=== PATIENT | male | born 1970 | race Caucasian/White ===

== ENCOUNTER 2021-04-29 13:14 | Emergency (ER) | payer OTHER, SELFPAY ==
--- NOTE | ~2021-04-29 | XR_ITS ---
EXAMINATION: XR CHEST CLINICAL INFORMATION: Cough COMPARISON: None TECHNIQUE: Frontal view of the chest was obtained. FINDINGS: Patchy airspace opacities within the right mid to lower lung and left lower lung. No pleural effusion or pneumothorax. Heart size is normal. No acute osseous abnormality. XR/XR chest 1V IMPRESSION: Patchy bilateral airspace opacities.
[2021-04-29 13:39] VITALS: BP 137/86; PULSE 89; RESP 16; TEMP 36.9; O2SAT 93; BMI 39.5
--- NOTE | 2021-04-29 13:51 | ED_ITS ---
HPI - General Adult General Chief complaint: General Medical Stated complaint: covid+ Time Seen by Provider: 04/29/21 13:30 Source: patient Mode of arrival: ambulatory Limitations: no limitations History of Present Illness HPI narrative: THIS IS PLEASANT 50 YEARS OLD PATIENT THAT WAS DIAGNOSED WITH COVID 1 WEEK AGO WITH ABOUT A WEEK AGO, PRESENTED TO THE EMERGENCY DEPARTMENT WITH CHIEF COMPLAINT NO NAUSEA OR VOMITING SINCE THIS MORNING. HE DENIES ANY FEVER, HE HAS BEEN MONITOR HIS OXYGEN SATURATION AND HAS BEEN OKAY Onset (ago): week(s) (1) Radiation: non-radiation Severity: mild Pain Consistency: constant Related Data Previous Rx's Medication Instructions Recorded azithromycin 250 mg tablet See Rx Instructions .ROUTE 04/29/21 (Zithromax Z-Jairo) .COMPLEX #6 tab Allergies Allergy/AdvReac Type Severity Reaction Status Date / Time isosorbide Allergy Migraine Verified 04/29/21 13:39 mononitrates Allergy Migraine Uncoded 04/29/21 13:39 Review of Systems Review of Systems: Yes all other systems are reviewed and are negative Constitutional: Constitutional: Reports no additional constitutional complaints Cardiovascular: Cardiovascular: Reports no additional cardiovascular complaints Respiratory: Respiratory: Reports cough Gastrointestinal: Gastrointestinal: Reports nausea and Reports vomiting PMFSH Past Medical History Medical History Myocardial infarct, old Social History Social History Advance Directives: No Advance Directives Information Provided: No Physical Exam Vital Signs: Vital Signs: Last Vital Signs Temp 98.2 F 04/29/21 15:03 Pulse 80 04/29/21 15:03 Resp 16 04/29/21 15:03 BP 127/63 04/29/21 15:03 Pulse Ox 95 04/29/21 15:03 Body Mass Index 39.5 Const: General: cooperative and comfortable Nutritional Appearance: well nourished Orientation/consciousness: oriented to person, oriented to place, oriented to time and patient oriented x3 HENMT: Head: Yes normal to inspection Face and sinus: Yes normal facial exam Neck: Neck: Yes normal visual inspection, Yes full ROM, Yes no lymphadenopathy and Yes no meningeal signs Chest: Chest palpation & inspection: normal inspection of the chest Resp: Effort & Inspection: normal respiratory effort Auscultation: clear to auscultation bilaterally Cardio: Jugular venous distension: no JVD Rhythm: regular rhythm GI: Inspection: Yes normal to inspection Palpation (GI): Soft to palpation, not firm, nontender and no guarding Skin: General skin exam: no rashes or lesions noted, elasticity normal and turgor normal Lesions: no lesions Rashes: no rashes Neuro: General: oriented to person, oriented to place, oriented to time, patient oriented x3 and no meningeal signs Course Reevaluation(s) Reevaluation #1: at this time he is feeling much better ,his 02 Sat is 95%,he does not desat during ambulation. His Covid 19 severity score is 0 Sat more than 92%and RR 16. He is comfortable to go home,he has an 02 oxymeter that has been using at home. I will prescibe also empirically an antibiotix azythromicin in case he has a bacterial superinfection Medical Decision Making Lab Data Result diagrams: 04/29/21 13:55 04/29/21 13:55 Labs: Lab Results 04/29/21 04/29/21 Range/Units 13:55 13:55 WBC 5.7 (4.8-10.8) X10*3/uL RBC 5.43 (4.60-5.80) X10*6/uL Hgb 15.9 (14.0-18.0) g/dl Hct 48.0 (42-52) % MCV 88.4 (80-98) fL MCH 29.3 (27.0-33.0) pg MCHC 33.1 (31.0-36.0) g/dl RDW 12.5 (11.0-16.0) % Plt Count 195 (160-400) X10*3/uL MPV 9.1 L (9.4-12.4) fL Immature Gran % (Auto) 0.7 H (0.0-0.4) % Neut % (Auto) 75.4 H (45-73) % Lymph % (Auto) 15.0 L (20-40) % [place] % (Auto) 8.5 (2-11) % Eos % (Auto) 0.2 (0-4) % Baso % (Auto) 0.2 (0-2) % Lymph # (Auto) 0.9 L (1.2-4.9) X10*3/uL [place] # (Auto) 0.5 (0.1-1.2) X10*3/uL Eos # (Auto) 0.0 (0.0-0.4) X10*3/uL Baso # (Auto) 0.0 (0.0-0.2) X10*3/uL Abs Immat Gran (auto) 0.04 H (0.00-0.03) X10*3/uL Absolute Neuts (auto) 4.3 (2.0-8.3) X10*3/uL Absolute Nucleated RBC 0.000 (0.0-0.012) X10*3/uL Nucleated RBC % (auto) 0.0 (0.0-0.2) /100WBC Sodium 142 (135-145) mmol/L Potassium 4.2 (3.3-5.1) mmol/L Chloride 104 (96-108) mmol/L Carbon Dioxide 28 (22-29) mmol/L Anion Gap 14 (12-20) BUN 16 (9-16) mg/dL Creatinine 0.94 (0.5-1.4) mg/dL Estim Creat Clear Calc 119.7 Estimated GFR > 60 Random Glucose 108 (60-115) mg/dL Calcium 9.1 (8.4-10.2) mg/dL Total Bilirubin 0.5 (0.0-1.0) mg/dL AST 32 (5-37) U/L ALT 35 (0-40) U/L Alkaline Phosphatase 72 (39-117) U/L Total Protein 7.6 (6.5-8.0) g/dL Albumin 4.6 (3.5-5.0) g/dL Imaging Data Chest x-ray: Radiologist's impression: XR CHEST CLINICAL INFORMATION: Cough COMPARISON: None TECHNIQUE: Frontal view of the chest was obtained. FINDINGS: Patchy airspace opacities within the right mid to lower lung and left lower lung. No pleural effusion or pneumothorax. Heart size is normal. No acute osseous abnormality. XR/XR chest 1V IMPRESSION: Patchy bilateral airspace opacities. ? Dictated By: SAGE CARVAJAL MD Signed By: <Electronically signed by SAGE CARVAJAL MD in OV> 04/29/21 1451 DD/ 1339 TD/TT:? Medical Interpreter: SB Discharge Plan Discharge Clinical Impression: Pneumonia due to COVID-19 virus Patient Disposition: Home, Self-Care Instructions: COVID-19 (Coronavirus Disease 2019) (ED) Additional Instructions: follow up with Primary Care Doctor Saturday,return is worse,is your 02 less than 93% Prescriptions: New azithromycin [Zithromax Z-Jairo] 250 mg tablet See Rx Instructions .ROUTE .COMPLEX Qty: 6 RF: 0 Interventions: ED Discharge Assessment Last Done: 04/29/21 16:15 Discharge Date/Time: 04/29/21 16:16
[2021-04-29] MEDS: ondansetron HCL 4 MG/2 ML VIAL IVPUSH (13:57)
[2021-04-29] MEDS: 0.9 % Sodium Chloride 1,000 ML 999 ML IVCONT (13:58)
[2021-04-29 14:01] LABS: MANUAL DIFF FLAG NO
[2021-04-29 14:03] LABS: Basophils Percent Auto 0.2 % (0-2); Eosinophils Percent Auto 0.2 % (0-4); Hemoglobin 15.9 g/dl (14.0-18.0); Imm Gran Abs Auto 0.04 X10*3/uL (0.00-0.03); Imm Gran Pct Auto 0.7 % (0.0-0.4); Lymphocytes Absolute Auto 0.9 X10*3/uL (1.2-4.9); Mean Corpuscular HGB Conc 33.1 g/dl (31.0-36.0); Mean Corpuscular Hemoglobin 29.3 pg (27.0-33.0); Mean Corpuscular Volume 88.4 fL (80-98); Mean Platelet Volume 9.1 fL (9.4-12.4); Monocytes Absolute Auto 0.5 X10*3/uL (0.1-1.2); Monocytes Percent Auto 8.5 % (2-11); Neutrophils Absolute Auto 4.3 X10*3/uL (2.0-8.3); Neutrophils Percent Auto 75.4 % (45-73); Platelet Count 195 X10*3/uL (160-400); Red Blood Count 5.43 X10*6/uL (4.60-5.80); Red Cell Distribution Width 12.5 % (11.0-16.0); White Blood Count 5.7 X10*3/uL (4.8-10.8)
[2021-04-29 14:29] LABS: Alanine Aminotransferase 35 U/L (0-40); Albumin Level 4.6 g/dL (3.5-5.0); Alkaline Phosphatase 72 U/L (39-117); Anion Gap 14 (12-20); Aspartate Amino Transferase 32 U/L (5-37); Bilirubin Total 0.5 mg/dL (0.0-1.0); Blood Urea Nitrogen 16 mg/dL (9-16); Calcium 9.1 mg/dL (8.4-10.2); Carbon Dioxide 28 mmol/L (22-29); Chloride 104 mmol/L (96-108); Creatinine Clr Calc Pharmacy 119.7; Estimated Glomerular Filt Rate > 60; Glucose Random 108 mg/dL (60-115); Potassium 4.2 mmol/L (3.3-5.1); Sodium 142 mmol/L (135-145); Total Protein 7.6 g/dL (6.5-8.0)
[2021-04-29 15:03] VITALS: BP 127/63; PULSE 80; RESP 16; TEMP 36.8; O2SAT 95
--- NOTE | 2021-04-29 15:41 | PC.NURSE ---
pt ambulated independently without o2 with no issue, spo2 remained >94%
== END 2021-04-29 16:16 | disposition home or self-care (01) ==
PROVIDERS: Emergency Provider Emergency Medicine
DX: U07.1 COVID-19 (principal); J12.89 Other viral pneumonia
CPT/HCPCS: 36415; 71045; 80053; 85025; 96361; 96374; 99284; J2405